=== PATIENT | female | born 1985 | race Two or more races ===

== ENCOUNTER 2020-04-06 09:26 | Outpatient (CLI) | payer OTHER | END 2020-04-06 10:22 | disposition home or self-care (01) | LOC: NUCLEAR 09:26 | PROVIDERS: ATTEND Internal Medicine Hematology & Oncology | DX: D73.1 Hypersplenism (principal); D58.0 Hereditary spherocytosis; D68.61 Antiphospholipid syndrome | CPT/HCPCS: 78215; A9541 ==

== ENCOUNTER 2020-05-15 07:59 | Emergency (ER) | payer OTHER ==
[~2020-05-15] VITALS: Ht 157.5 cm; Wt 61.7 kg
[2020-05-15] MEDS ORDERED: ASPIR 8181 MG (08:26)
[2020-05-15] MEDS ORDERED: DIALYVITE 3,001 EACH (08:26)
== END 2020-05-15 13:33 | disposition home or self-care (01) ==
LOC: ER 07:59
DX: N83.292 Other ovarian cyst, left side (principal); R10.2 Pelvic and perineal pain; Z03.818 Encounter for observation for suspected exposure to other biological agents ruled out

== ENCOUNTER 2021-03-08 13:01 | Outpatient (CLI) | payer OTHER ==
[~2021-03-08 13:01] MED LIST: ASPIR 8181 MG; DIALYVITE 3,001 EACH
[2021-03-24] MEDS ORDERED: NEURONTIN300 MG PO (14:08)
== END 2021-03-08 13:22 | disposition home or self-care (01) ==
LOC: SONOGRAMA 13:01
PROVIDERS: ATTEND General Practice
DX: M79.641 Pain in right hand (principal); R25.2 Cramp and spasm; R22.9 Localized swelling, mass and lump, unspecified

== ENCOUNTER 2021-04-04 06:56 | Emergency (ER) | payer OTHER ==
[~2021-04-04] VITALS: Ht 157.5 cm; Wt 65.8 kg
[~2021-04-04 06:56] MED LIST changes: +NEURONTIN300 MG PO
[2021-04-04] MEDS ORDERED: AMOX1TAB5 PO (09:06)
== END 2021-04-04 09:51 | disposition home or self-care (01) ==
LOC: ER 06:56
DX: S61.412A Laceration without foreign body of left hand, initial encounter (principal); X58.XXXA Exposure to other specified factors, initial encounter; Y93.89 Activity, other specified; Y92.89 Other specified places as the place of occurrence of the external cause

== ENCOUNTER 2021-04-18 07:54 | Outpatient (CLI) | payer OTHER ==
[~2021-04-18 07:54] MED LIST changes: +AMOX1TAB5 PO
== END 2021-04-18 07:59 | disposition home or self-care (01) ==
LOC: SONOGRAMA 07:54 → MAMO-SONO 09:00
PROVIDERS: ATTEND Obstetrics & Gynecology
DX: Q51.818 Other congenital malformations of uterus (principal); N94.5 Secondary dysmenorrhea

== ENCOUNTER 2021-04-27 12:29 | Outpatient (CLI) | payer OTHER | END 2021-04-27 12:34 | disposition home or self-care (01) | LOC: SONOGRAMA 12:29 | DX: N64.59 Other signs and symptoms in breast (principal) ==

== ENCOUNTER 2021-06-27 07:32 | Outpatient (CLI) | payer OTHER | END 2021-06-27 07:48 | disposition home or self-care (01) | LOC: TOM 07:32 | PROVIDERS: ATTEND Internal Medicine Hematology & Oncology | DX: R10.2 Pelvic and perineal pain (principal); R10.32 Left lower quadrant pain; D58.0 Hereditary spherocytosis; D68.61 Antiphospholipid syndrome; D70.8 Other neutropenia ==

== ENCOUNTER 2022-05-08 11:04 | Outpatient (CLI) | payer OTHER | END 2022-05-08 11:06 | disposition home or self-care (01) | LOC: MRI 11:04 | PROVIDERS: ATTEND General Practice | DX: M79.641 Pain in right hand (principal); M25.531 Pain in right wrist; R60.0 Localized edema; G56.03 Carpal tunnel syndrome, bilateral upper limbs; D68.61 Antiphospholipid syndrome | CPT/HCPCS: 73218 ==

== ENCOUNTER 2022-12-24 07:33 | Outpatient (CLI) | payer OTHER | END 2022-12-24 07:45 | disposition home or self-care (01) | LOC: SONOGRAMA 07:33 | PROVIDERS: ATTEND General Practice | DX: M79.641 Pain in right hand (principal); M65.841 Other synovitis and tenosynovitis, right hand; G56.03 Carpal tunnel syndrome, bilateral upper limbs; D58.0 Hereditary spherocytosis; D68.61 Antiphospholipid syndrome; D72.819 Decreased white blood cell count, unspecified ==

== ENCOUNTER 2022-12-26 08:25 | Outpatient (CLI) | payer OTHER | END 2022-12-26 08:37 | disposition home or self-care (01) | LOC: TOM 08:25 | PROVIDERS: ATTEND Internal Medicine Hematology & Oncology | DX: D68.61 Antiphospholipid syndrome (principal); R42 Dizziness and giddiness; G44.89 Other headache syndrome ==

== ENCOUNTER 2022-12-27 07:30 | Outpatient (CLI) | payer OTHER | END 2022-12-27 07:34 | disposition home or self-care (01) | LOC: NUCLEAR 07:30 | PROVIDERS: ATTEND Internal Medicine Hematology & Oncology | DX: D68.61 Antiphospholipid syndrome (principal); R42 Dizziness and giddiness; R11.0 Nausea ==

== ENCOUNTER 2023-03-27 11:37 | Outpatient (CLI) | payer OTHER | END 2023-03-27 11:55 | disposition home or self-care (01) | LOC: MRI 11:37 | PROVIDERS: ATTEND General Practice | DX: M25.562 Pain in left knee (principal); D72.9 Disorder of white blood cells, unspecified; D58.0 Hereditary spherocytosis; D68.61 Antiphospholipid syndrome | CPT/HCPCS: 73218; 73718 ==

== ENCOUNTER 2023-07-09 07:41 | Outpatient (CLI) | payer OTHER | END 2023-07-09 07:48 | disposition home or self-care (01) | LOC: SONOGRAMA 07:41 → TOM 07:41 → SONOGRAMA 07:48 → TOM 07:48 | PROVIDERS: ATTEND General Practice | DX: R10.10 Upper abdominal pain, unspecified (principal); R11.0 Nausea; R10.2 Pelvic and perineal pain; Z91.013 Allergy to seafood ==

== ENCOUNTER 2023-07-16 08:02 | Outpatient (CLI) | payer OTHER | END 2023-07-16 08:13 | disposition home or self-care (01) | LOC: SONOGRAMA 08:02 | PROVIDERS: ATTEND General Practice | DX: R10.9 Unspecified abdominal pain (principal); R10.10 Upper abdominal pain, unspecified; R11.0 Nausea; D72.819 Decreased white blood cell count, unspecified; D68.61 Antiphospholipid syndrome; Z91.013 Allergy to seafood ==

== ENCOUNTER 2024-05-26 09:01 | Outpatient (CLI) | payer OTHER | END 2024-05-26 09:10 | disposition home or self-care (01) | LOC: MAMO-SONO 09:01 | PROVIDERS: ATTEND Obstetrics & Gynecology | DX: N60.09 Solitary cyst of unspecified breast (principal) ==

== ENCOUNTER 2024-06-16 08:13 | Outpatient (CLI) | payer OTHER | END 2024-06-16 08:37 | disposition home or self-care (01) | LOC: TOM 08:13 | PROVIDERS: ATTEND General Practice | DX: R10.9 Unspecified abdominal pain (principal); R10.30 Lower abdominal pain, unspecified; D13.4 Benign neoplasm of liver; D68.61 Antiphospholipid syndrome; D58.0 Hereditary spherocytosis ==

== ENCOUNTER 2024-07-09 07:19 | Outpatient (CLI) | payer OTHER | END 2024-07-09 07:20 | disposition home or self-care (01) | LOC: NUCLEAR 07:19 | DX: R10.10 Upper abdominal pain, unspecified (principal); R11.0 Nausea; R10.9 Unspecified abdominal pain ==

== ENCOUNTER 2024-07-29 17:25 | Emergency (ER) | payer OTHER ==
[~2024-07-29] VITALS: Ht 157.5 cm; Wt 63.5 kg
[2024-07-29 17:47] VITALS: BP 138/83; O2SAT 100
[2024-07-29] MEDS ORDERED: 0.9 % SODIUM CHLORIDE 500 ML IV ONE (18:30)
[2024-07-29] MEDS ORDERED: KETOROLAC TROMETHAMINE 30 MG VIAL IV ONE (18:30)
[2024-07-29] MEDS ORDERED: FAMOTIDINE/PF 20 MG/2 ML VIAL IV ONE (18:30)
[2024-07-29 18:44] LABS: HEMATOCRIT 36.2 % (36.0-45.00); HEMOGLOBIN 12.6 g/dL (12.0-15.00); MEAN CORPUSCULAR HEMOGLOBIN 29.2 pg (27.00-32.0); MEAN CORPUSCULAR HGB CONC 34.8 g/dl (32.0-36.0); PLATELET COUNT 246 K/uL (150-450); RED BLOOD COUNT 4.31 M/uL (4.00-6.00); RED CELL DISTRIBUTION WIDTH 13.8 % (11.5-14.5)
[2024-07-29 18:59] LABS: ALBUMIN 4.2 gm/dL (3.4-5.0); BILIRUBIN TOTAL 0.42 mg/dL (0.3-1.2); CALCIUM 9.4 mg/dL (8.5-10.1); CREATININE SERUM 0.79 mg/dL (0.55-1.02); GFR 80.6; GLOBULINA 3.6 G/DL (2.4-3.5); POTASSIUM 4.08 mEq/L (3.5-5.1); TOTAL PROTEIN 7.8 gm/dL (6.4-8.2)
[2024-07-29 19:17] LABS: URINE APPEARANCE Clear; URINE BILIRRUBIN Negative (NEGATIVE); URINE BLOOD Negative; URINE COLOR Yellow; URINE GLUCOSE Negative (NEGATIVE); URINE KETONE Negative (NEGATIVE); URINE LEUKOCYTE Negative; URINE NITRATE Negative; URINE PROTEIN Negative (NEGATIVE); URINE UROBILINOGEN 0.2 E.U./dl
[2024-07-29 19:23] LABS: URINE EPITHELIAL CELLS 8.9 uL (0.0-38.8); URINE RBC 5.1 uL (0.0-20.8)
== END 2024-07-29 21:13 ==
LOC: ER 17:25
PROVIDERS: Nurse Practitioner Family
DX: I88.0 Nonspecific mesenteric lymphadenitis (principal); D68.61 Antiphospholipid syndrome; Z91.013 Allergy to seafood

== ENCOUNTER 2024-08-25 07:34 | Outpatient (CLI) | payer OTHER | END 2024-08-25 07:50 | disposition home or self-care (01) | LOC: RAD 07:34 | PROVIDERS: ATTEND General Practice | DX: M25.541 Pain in joints of right hand (principal); M79.642 Pain in left hand; M79.641 Pain in right hand; M79.644 Pain in right finger(s); M25.542 Pain in joints of left hand; D72.819 Decreased white blood cell count, unspecified; D63.8 Anemia in other chronic diseases classified elsewhere; E03.9 Hypothyroidism, unspecified; D68.61 Antiphospholipid syndrome; D58.0 Hereditary spherocytosis ==

== ENCOUNTER 2025-04-07 08:07 | Outpatient (CLI) | payer OTHER | END 2025-04-07 08:22 | disposition home or self-care (01) | LOC: SONOGRAMA 08:07 | PROVIDERS: ATTEND General Practice | DX: R10.2 Pelvic and perineal pain (principal); R10.9 Unspecified abdominal pain ==

== ENCOUNTER 2025-04-20 07:46 | Emergency (ER) | payer OTHER ==
[~2025-04-20] VITALS: Ht 157.5 cm; Wt 59.0 kg
[2025-04-20] MEDS ORDERED: ONDANSETRON HCL 2 MG/ML VIAL IV STA (08:22)
[2025-04-20] MEDS ORDERED: MECLIZINE HCL 25 MG TABLET PO ONE (08:30)
[2025-04-20 08:57] LABS: BASO % 0.3 % (0.1-1.2); EOS # 0.12 (0.04-0.54); EOS % 4.1 % (0.7-7.0); LYMPH # 1.11 (1.18-3.74); LYMPH % 37.9 % (19.3-53.1); MEAN PLATELET VOLUME 8.70 fl (9.4-12.4); MONO # 0.20 (0.24-0.82); MONO % 6.8 % (4.7-12.5); NEUT # 1.49 (1.56-6.13); NEUT % 50.9 % (34.0-71.1); RED CELL DISTRIBUTION WIDTH 11.3 % (11.6-14.4)
[2025-04-20] MEDS ORDERED: 0.9 % SODIUM CHLORIDE 1,000 ML IV SCH (09:00)
[2025-04-20 09:30] LABS: BUN CREA RATIO 14.0 (7.0-25.0); CREATININE SERUM 0.74 mg/dL (0.55-1.02); GFR 86.92; GLUCOSE FASTING 94.0 mg/dL (65-100); OSMOLALITY SERUM 282.0 MOSM/KG (275-295)
== END 2025-04-20 12:02 | disposition home or self-care (01) ==
LOC: ER 07:46
PROVIDERS: Emergency Medicine
DX: R42 Dizziness and giddiness (principal); Z91.013 Allergy to seafood

== ENCOUNTER 2025-06-29 07:09 | Outpatient (CLI) | payer OTHER | END 2025-06-29 07:17 | disposition home or self-care (01) | LOC: MRI 07:09 | PROVIDERS: ATTEND General Practice | DX: M79.672 Pain in left foot (principal); M25.572 Pain in left ankle and joints of left foot; G89.11 Acute pain due to trauma | CPT/HCPCS: 73721 ==